=== PATIENT | male | born 2000 | race African-American/Black ===

== ENCOUNTER 2023-03-06 08:04 | Inpatient (IN) | payer OTHER ==
[~2023-03-06] VITALS: Ht 175.3 cm; Wt 61.2 kg
[2023-03-06] MEDS ORDERED: LORazepam 2 MG/ML VIAL ONE (08:08)
[2023-03-06 08:15] VITALS: BP 147/80; PULSE 145; RESP 17; TEMP 97.7; O2SAT 98
[2023-03-06] MEDS ORDERED: levETIRAcetam 1,000 MG in NACL 0.9% 100 ML IV ONE (08:15)
[2023-03-06] MEDS ORDERED: LORazepam 2 MG/ML VIAL IVP ONE (08:25)
[2023-03-06 08:55] LABS: BASOPHILS # (AUTO) 0.1 K/uL (0.00-0.22); BASOPHILS % (AUTO) 0.8 % (0.0-2.0); EOSINOPHILS % (AUTO) 0.5 % (0.0-4.0); HEMATOCRIT 44.1 % (36-52); HEMOGLOBIN 14.3 g/dL (12.0-18.0); LYMPHOCYTES # (AUTO) 2.4 K/uL (2.0-11.5); LYMPHOCYTES % (AUTO) 35.1 % (20.5-51.1); MEAN CORPUSCULAR HEMOGLOBIN 28 pg (27-31); MEAN CORPUSCULAR HGB CONC 33 g/dL (33-37); MEAN CORPUSCULAR VOLUME 84.4 fL (80-94); MONOCYTES # (AUTO) 0.5 K/uL (0.8-1.0); MONOCYTES % (AUTO) 7.5 % (1.7-9.3); NEUTROPHILS # (AUTO) 3.9 K/uL (1.8-7.7); NEUTROPHILS % (AUTO) 56.1 % (42.2-75.2); PLATELET COUNT (AUTO) 226 K/uL (140-450); RED BLOOD CELL COUNT(AUTO) 5.22 MIL/uL (4.20-6.10); RED CELL DISTRIBUTION WIDTH 14.9 % (11.6-13.7); WHITE BLOOD COUNT (AUTO) 6.9 K/uL (4.8-10.8)
[2023-03-06 09:06] LABS: ALANINE AMINOTRANSFERASE 28 U/L (12-78); ALKALINE PHOSPHATASE 61 U/L (50-136); ANION GAP 12.8 (8-16); ASPARTATE AMINOTRANSFERASE 23 U/L (15-37); CALCIUM 7.9 mg/dL (8.5-10.1); CARBON DIOXIDE 27.9 mmol/L (21-32); CHLORIDE 105 mmol/L (98-107); GFR ARICAN-AMERICAN 118 mL/min (>90); GFR NON ARICAN-AMERICAN 98 mL/min (>90); GLUCOSE 155 mg/dL (74-106); POTASSIUM 3.7 mmol/L (3.5-5.1); SODIUM SERUM 142 mmol/L (136-145); TOTAL BILIRUBIN 0.4 mg/dL (0.0-1.0); TOTAL PROTEIN, SERUM 7.6 g/dL (6.4-8.2); UREA NITROGEN, BLOOD 11 mg/dL (7-18)
[2023-03-06] MEDS ORDERED: NACL 0.9% 1,000 ML IV ONE (13:45)
[2023-03-06] MEDS ORDERED: MORPHINE SULFATE 2 MG/ML SYR IVP PRN (15:25)
[2023-03-06] MEDS ORDERED: MAGNESIUM OXIDE 400 MG TAB PO PRN (15:25)
[2023-03-06] MEDS ORDERED: POTASSIUM CHLORIDE 10 MEQ TABER PO PRN (15:25)
[2023-03-06] MEDS ORDERED: HYDROcodone/APAP 5/325 MG 1 TAB TAB PO PRN (15:25)
[2023-03-06] MEDS ORDERED: ACETAMINOPHEN 325 MG TAB PO PRN (15:25)
[2023-03-06] MEDS ORDERED: LORazepam 2 MG/ML VIAL IVP PRN (15:30)
[2023-03-06] MEDS: DEXT 5% /NACL 0.9% 1,000 ML IV SCH (15:50)
[2023-03-06 20:08] VITALS: PULSE 106; RESP 22; O2SAT 97
[2023-03-06] MEDS: ALBUTEROL SULFATE/IPRATROPIU 3 ML SOL IH SCH (20:10)
[2023-03-06] MEDS ORDERED: levETIRAcetam 100 MG/ML VIAL IV ONE (21:16)
[2023-03-06] MEDS: levETIRAcetam 1,000 MG in NACL 0.9% 100 ML IV SCH (21:36)
[2023-03-07] VITALS (7 sets, daily range): BP systolic 133–143; BP diastolic 66–80; PULSE 82–106; RESP 18–24; TEMP 98.1–98.5; O2SAT 96–100
[2023-03-07] MEDS: ALBUTEROL SULFATE/IPRATROPIU 3 ML SOL IH SCH ×3 (01:00→13:38)
[2023-03-07] MEDS ORDERED: MIDODRINE 5 MG TAB PO SCH (01:21)
[2023-03-07] MEDS ORDERED: NACL 0.9% 1,500 ML IV ONE (01:21)
[2023-03-07] MEDS ORDERED: ALBUMIN HUMAN 25% 50 ML IV ONE (01:21)
[2023-03-07] MEDS ORDERED: ALBUMIN HUMAN 25% 100 ML IV ONE (01:28)
[2023-03-07] MEDS: DEXT 5% /NACL 0.9% 1,000 ML IV SCH (03:55)
[2023-03-07] MEDS ORDERED: LEVE500T9 PO (05:50)
[2023-03-07] MEDS ORDERED: BACL10TA4 PO (05:50)
[2023-03-07 07:14] LABS: BASOPHILS % (AUTO) 0.3 % (0.0-2.0); EOSINOPHILS % (AUTO) 0.1 % (0.0-4.0); HEMATOCRIT 42.8 % (36-52); HEMOGLOBIN 13.9 g/dL (12.0-18.0); LYMPHOCYTES # (AUTO) 1.7 K/uL (2.0-11.5); LYMPHOCYTES % (AUTO) 18.9 % (20.5-51.1); MEAN CORPUSCULAR HEMOGLOBIN 27 pg (27-31); MEAN CORPUSCULAR HGB CONC 32 g/dL (33-37); MEAN CORPUSCULAR VOLUME 84.2 fL (80-94); MONOCYTES # (AUTO) 0.9 K/uL (0.8-1.0); MONOCYTES % (AUTO) 9.8 % (1.7-9.3); NEUTROPHILS # (AUTO) 6.2 K/uL (1.8-7.7); NEUTROPHILS % (AUTO) 70.9 % (42.2-75.2); PLATELET COUNT (AUTO) 199 K/uL (140-450); RED BLOOD CELL COUNT(AUTO) 5.08 MIL/uL (4.20-6.10); RED CELL DISTRIBUTION WIDTH 14.4 % (11.6-13.7); WHITE BLOOD COUNT (AUTO) 8.8 K/uL (4.8-10.8)
[2023-03-07 07:42] LABS: ALBUMIN 3.7 g/dL (3.4-5.0); ANION GAP 10.7 (8-16); CALCIUM 8.1 mg/dL (8.5-10.1); CARBON DIOXIDE 25.3 mmol/L (21-32); CREATININE 0.7 mg/dL (0.6-1.3); TOTAL BILIRUBIN 1.2 mg/dL (0.0-1.0); TOTAL PROTEIN, SERUM 6.8 g/dL (6.4-8.2)
[2023-03-07] MEDS: levETIRAcetam 1,000 MG in NACL 0.9% 100 ML IV SCH (09:47)
== END 2023-03-07 18:06 | disposition home or self-care (01) | DRG 53 ==
LOC: MED 08:04 → MTU 15:27
PROVIDERS: ADMIT Student in an Organized Health Care Education/Training Program; ATTEND Student in an Organized Health Care Education/Training Program
DX: G40.409 Other generalized epilepsy and epileptic syndromes, not intractable, without status epilepticus (principal); G93.41 Metabolic encephalopathy; E86.1 Hypovolemia
CPT/HCPCS: 36415; 70450; 80053; 83605; 83735; 84439; 84443; 84484; 85025; 87081; 93005; 94640; 96374; 96375; 99291; J1644; J1953; J2060; P9046